=== PATIENT | male | born 1955 | race Caucasian/White ===

== ENCOUNTER 2018-03-18 11:58 | Emergency (ER) | payer OTHER ==
[~2018-03-18] VITALS: Ht 182.9 cm; Wt 82.7 kg
[2018-03-18 12:14] VITALS: BP 154/97; Ht 182.9 cm; Wt 82.7 kg
== END 2018-03-18 13:17 | disposition home or self-care (01) ==
LOC: ED 11:58
DX: M70.31 Other bursitis of elbow, right elbow (principal)